=== PATIENT | female | born 1950 | race African-American/Black ===

== ENCOUNTER 2021-03-02 16:00 | Inpatient (IN) | payer OTHER, MEDICAID ==
[~2021-03-02] VITALS: Ht 153 cm; Wt 65.3 kg
[2021-03-02] MEDS ORDERED: POTASSIUM CHLORIDE INJ 40 MEQ in DEXT 5% WATER 250 ML IV ONE (21:00)
[2021-03-02] MEDS ORDERED: SODIUM CHLORIDE 0.9% 1,000 ML IV ONE (21:00)
[2021-03-02] MEDS ORDERED: KCL 20MEQ/100ML PREMIX 100 ML IV SCH (22:00)
[2021-03-03] MEDS ORDERED: ACETAMINOPHEN 325MG TABLET PO PRN (00:15)
[2021-03-03] MEDS: BLOOD SUGAR DIAGNOSTIC STRIP TEST SCH ×4 (00:15→18:00)
[2021-03-03] MEDS ORDERED: MIDODRINE HCL 5MG TABLET PO SCH (00:15)
[2021-03-03] MEDS ORDERED: POTASSIUM-SODIUM PHOSPHATE POWDER PACKET PO ONE (00:30)
[2021-03-03 01:43] LABS: EOSINOPHILS % 0.3 % (0.0-5.0); HEMATOCRIT. 32.8 % (36.0-48.0); HEMOGLOBIN. 10.8 g/dL (12.0-16.0); LYMPHOCYTES % 8.8 % (20.0-50.0); MEAN CORPUSCULAR HEMOGLOBIN 27.6 pg (28.0-32.0); MONOCYTES % 11.1 % (2.0-8.0); NEUTROPHILS % 78.8 % (40.0-76.0); PLATELET 205 x1000/uL (130-400)
[2021-03-03] MEDS ORDERED: KCL 20MEQ/100ML PREMIX 100 ML IV ONE (01:45)
[2021-03-03] MEDS ORDERED: POTASSIUM-SODIUM PHOSPHATE POWDER PACKET PO SCH (04:00)
[2021-03-03] MEDS: MIDODRINE HCL 5MG TABLET PO SCH ×3 (05:48→17:00)
[2021-03-03] MEDS: NOREPINEPHRINE 8 MG in DEXTROSE 5% WATER 250 ML IV PRN (06:08)
[2021-03-03] MEDS ORDERED: DEXT 5%/0.9% NACL 1,000 ML IV SCH (10:30)
[2021-03-03] MEDS ORDERED: CEFTRIAXONE 1 G PREMIX 50 ML IV SCH (16:00)
[2021-03-03 23:43] LABS: BASOPHILS % 0.9 % (0.0-2.0); EOSINOPHILS % 0.6 % (0.0-5.0); HEMATOCRIT. 32.1 % (36.0-48.0); HEMOGLOBIN. 10.5 g/dL (12.0-16.0); MEAN CORPUSCULAR HEMOGLOBIN 27.4 pg (28.0-32.0); MEAN CORPUSCULAR VOLUME 83.6 fL (81.0-99.0); NEUTROPHILS % 78.5 % (40.0-76.0); RED BLOOD CELL COUNT 3.84 mill/uL (4.2-5.4); RED CELL DISTRIBUTION WIDTH 17.9 % (11.6-14.6)
[2021-03-04] VITALS (26 sets, daily range): BP systolic 92–126; BP diastolic 48–67
[2021-03-04 00:05] LABS: PHOSPHORUS 3.6 mg/dL (2.5-4.9)
[2021-03-04 00:19] LABS: PLATELET 206 x1000/uL (130-400)
[2021-03-04] MEDS ORDERED: POTASSIUM CHLORIDE 20MEQ TABLET SR PO SCH (00:45)
[2021-03-04] MEDS ORDERED: POTASSIUM CHLORIDE INJ 60 MEQ in DEXT 5% WATER 500 ML IV SCH (01:00)
[2021-03-04 03:59] LABS: BASOPHILS % 1.5 % (0.0-2.0); EOSINOPHILS % 0.5 % (0.0-5.0); HEMATOCRIT. 31.8 % (36.0-48.0); HEMOGLOBIN. 10.4 g/dL (12.0-16.0); LYMPHOCYTES % 7.6 % (20.0-50.0); MEAN CORPUSCULAR HEMOGLOBIN 27.2 pg (28.0-32.0); MEAN CORPUSCULAR VOLUME 83.6 fL (81.0-99.0); MEAN PLATELET VOLUME 9.5 fl (7.4-10.4); MONOCYTES % 9.5 % (2.0-8.0); NEUTROPHILS % 80.9 % (40.0-76.0); PLATELET 227 x1000/uL (130-400); RED CELL DISTRIBUTION WIDTH 17.9 % (11.6-14.6)
[2021-03-04] MEDS: BLOOD SUGAR DIAGNOSTIC STRIP TEST SCH ×4 (06:00→18:00)
[2021-03-04] MEDS ORDERED: POTASSIUM CHLORIDE 20MEQ TABLET SR PO ONE (07:30)
[2021-03-04] MEDS: FOLIC ACID/VITAMIN B COMP W-C TABLET PO SCH (11:02)
[2021-03-04] MEDS: MIDODRINE HCL 5MG TABLET PO SCH ×3 (11:02→17:29)
[2021-03-04] MEDS: DEXT 5%/0.45% NACL KCL 30MEQ/L 1,000 ML IV SCH (11:03)
[2021-03-04] MEDS ORDERED: ALBUMIN HUMAN 12.5GM/50ML (25%) IV ONE (13:15)
[2021-03-04] MEDS ORDERED: CEFTRIAXONE 1,000 MG in DEXTROSE 5% WATER 50 ML IV SCH (14:00)
[2021-03-04] MEDS ORDERED: KCL 20MEQ/100ML PREMIX 100 ML IV NR (14:00)
[2021-03-04] MEDS: HEPARIN 5000 UNITS/ML VIAL SUBCUT SCH ×2 (15:06→20:22)
[2021-03-04] MEDS: NOREPINEPHRINE 8 MG in DEXTROSE 5% WATER 250 ML IV PRN (15:37)
[2021-03-04] MEDS ORDERED: IPRATROPIUM/ALBUTEROL 0.5-3(2.5)MG/3ML NEB HHN PRN (19:45)
[2021-03-04 20:19] LABS: HEPATITIS B SURFACE ANTIGEN NEGATIVE
[2021-03-04 20:25] LABS: VITAMIN B12 SERUM 1119 pg/mL (211-911)
[2021-03-04] MEDS ORDERED: POTASSIUM CHLORIDE 20MEQ TABLET SR PO NR (20:30)
[2021-03-04 20:59] LABS: FERRITIN 2646 ng/mL (10-291)
[2021-03-04] MEDS: METRONIDAZOLE 500MG TABLET PO SCH (22:37)
[2021-03-04] MEDS: CEFEPIME 1,000 MG in DEXTROSE 5% WATER 50 ML IV SCH (22:37)
[2021-03-05] VITALS (91 sets, daily range): BP systolic 69–133; BP diastolic 40–88
[2021-03-05] MEDS: BLOOD SUGAR DIAGNOSTIC STRIP TEST SCH ×3 (00:29→17:47)
[2021-03-05] MEDS: NOREPINEPHRINE 8 MG in DEXTROSE 5% WATER 250 ML IV PRN (04:16)
[2021-03-05] MEDS: DEXT 5%/0.45% NACL KCL 30MEQ/L 1,000 ML IV SCH (05:16)
[2021-03-05] MEDS: METRONIDAZOLE 500MG TABLET PO SCH ×3 (05:16→21:15)
[2021-03-05 06:14] LABS: INR 1.3; PROTHROMBIN TIME 13.4 sec (9.6-11.0)
[2021-03-05 08:40] LABS: BG BASE EXCESS -3.8 mmol/L (-2.0-2.0); BG CARBOXYHEMOGLOBIN 0.3 % (0.5-1.5); BG DEOXYHEMOGLOBIN 3.2 % (0.0-5.0); BG FRACTION INSPIRED OXYGEN 21; BG HCO3 ACT 19.9 mmol/L (22.0-26.0); BG METHEMOGLOBIN 0.6 % (0.0-1.5); BG OXYGEN SATURATION 96.8 % (92.0-98.5); BG OXYHEMOGLOBIN 95.9 % (94.0-97.0); BG PCO2 31.4 mmHg (35.0-45.0); BG PO2 95.4 mmHg (75.0-100.0); BG SAMPLE SITE LEFT BRACHIAL; BG VENT MODE ROOM AIR
[2021-03-05] MEDS: HEPARIN 5000 UNITS/ML VIAL SUBCUT SCH ×2 (09:11→21:16)
[2021-03-05] MEDS: MIDODRINE HCL 5MG TABLET PO SCH ×3 (09:11→17:47)
[2021-03-05] MEDS: CEFEPIME 1,000 MG in DEXTROSE 5% WATER 50 ML IV SCH ×2 (09:11→21:15)
[2021-03-05] MEDS: FOLIC ACID/VITAMIN B COMP W-C TABLET PO SCH (09:11)
[2021-03-05 09:39] LABS: BASOPHILS % 1.5 % (0.0-2.0); EOSINOPHILS % 1.4 % (0.0-5.0); HEMATOCRIT. 31.2 % (36.0-48.0); HEMOGLOBIN. 9.9 g/dL (12.0-16.0); MEAN CORPUSCULAR HEMOGLOBIN 27.5 pg (28.0-32.0); MEAN CORPUSCULAR VOLUME 86.1 fL (81.0-99.0); MEAN PLATELET VOLUME 9.6 fl (7.4-10.4); NEUTROPHILS % 72.1 % (40.0-76.0); RED BLOOD CELL COUNT 3.62 mill/uL (4.2-5.4); RED CELL DISTRIBUTION WIDTH 18.5 % (11.6-14.6)
[2021-03-05 09:41] LABS: PLATELET 199 x1000/uL (130-400)
[2021-03-06] VITALS (56 sets, daily range): BP systolic 89–122; BP diastolic 42–64
[2021-03-06] MEDS: BLOOD SUGAR DIAGNOSTIC STRIP TEST SCH ×4 (00:25→18:38)
[2021-03-06] MEDS: DEXT 5%/0.45% NACL KCL 30MEQ/L 1,000 ML IV SCH (00:51)
[2021-03-06] MEDS: METRONIDAZOLE 500MG TABLET PO SCH ×3 (06:28→23:54)
[2021-03-06 06:35] LABS: PHOSPHORUS 2.7 mg/dL (2.5-4.9)
[2021-03-06] MEDS: FOLIC ACID/VITAMIN B COMP W-C TABLET PO SCH (09:42)
[2021-03-06] MEDS: HEPARIN 5000 UNITS/ML VIAL SUBCUT SCH ×2 (09:42→21:00)
[2021-03-06] MEDS: MIDODRINE HCL 5MG TABLET PO SCH ×3 (09:43→17:01)
[2021-03-06] MEDS: CEFEPIME 1,000 MG in DEXTROSE 5% WATER 50 ML IV SCH (09:46)
[2021-03-06 09:54] LABS: BASOPHILS % 1.3 % (0.0-2.0); HEMATOCRIT. 31.9 % (36.0-48.0); LYMPHOCYTES % 14.1 % (20.0-50.0); MEAN PLATELET VOLUME 9.8 fl (7.4-10.4); MONOCYTES % 11.9 % (2.0-8.0); NEUTROPHILS % 71.7 % (40.0-76.0); PLATELET 174 x1000/uL (130-400); RED BLOOD CELL COUNT 3.59 mill/uL (4.2-5.4); RED CELL DISTRIBUTION WIDTH 19.5 % (11.6-14.6)
[2021-03-06] MEDS: DEXTROSE 50% WATER 50ML SYRINGE IV PRN (18:30)
[2021-03-06] MEDS: VANCOMYCIN HCL 1000 MG/20 ML ORAL PO SCH ×2 (19:08→23:54)
[2021-03-07] VITALS: BP 101/48
[2021-03-07] MEDS: BLOOD SUGAR DIAGNOSTIC STRIP TEST SCH ×4 (00:06→18:13)
[2021-03-07] MEDS: CEFEPIME 1,000 MG in DEXTROSE 5% WATER 50 ML IV SCH ×3 (00:28→21:52)
[2021-03-07 04:00] VITALS: BP 98/52
[2021-03-07] MEDS: VANCOMYCIN HCL 1000 MG/20 ML ORAL PO SCH ×3 (06:20→23:53)
[2021-03-07] MEDS: METRONIDAZOLE 500MG TABLET PO SCH ×3 (06:20→21:52)
[2021-03-07 07:04] LABS: BASOPHILS % 2.5 % (0.0-2.0); EOSINOPHILS % 0.9 % (0.0-5.0); HEMATOCRIT. 32.1 % (36.0-48.0); HEMOGLOBIN. 10.7 g/dL (12.0-16.0); LYMPHOCYTES % 17.8 % (20.0-50.0); MEAN CORPUSCULAR HEMOGLOBIN 27.9 pg (28.0-32.0); MEAN CORPUSCULAR VOLUME 83.9 fL (81.0-99.0); MEAN PLATELET VOLUME 10.1 fl (7.4-10.4); NEUTROPHILS % 68.8 % (40.0-76.0); PLATELET 187 x1000/uL (130-400); RED BLOOD CELL COUNT 3.83 mill/uL (4.2-5.4); RED CELL DISTRIBUTION WIDTH 18.6 % (11.6-14.6)
[2021-03-07 08:00] VITALS: BP 101/55
[2021-03-07] MEDS ORDERED: POTASSIUM CHLORIDE 20MEQ/PACKET PO SCH (08:00)
[2021-03-07] MEDS ORDERED: POTASSIUM CHLORIDE INJ 40 MEQ in DEXT 5% WATER 250 ML IV SCH (09:00)
[2021-03-07] MEDS: MIDODRINE HCL 5MG TABLET PO SCH ×3 (09:10→18:13)
[2021-03-07] MEDS: FOLIC ACID/VITAMIN B COMP W-C TABLET PO SCH (09:10)
[2021-03-07] MEDS: HEPARIN 5000 UNITS/ML VIAL SUBCUT SCH (09:11)
[2021-03-07 12:00] VITALS: BP 98/58
[2021-03-07 16:00] VITALS: BP 107/56
[2021-03-07 20:00] VITALS: BP 111/55
[2021-03-08] VITALS: BP_SYST 109; BP_SYST 111; BP_DIAS 52
[2021-03-08] MEDS: BLOOD SUGAR DIAGNOSTIC STRIP TEST SCH ×4 (00:36→18:04)
[2021-03-08 04:00] VITALS: BP_SYST 111; BP_SYST 92; BP_DIAS 52; BP_DIAS 62
[2021-03-08] MEDS: METRONIDAZOLE 500MG TABLET PO SCH ×3 (06:00→22:11)
[2021-03-08] MEDS: VANCOMYCIN HCL 1000 MG/20 ML ORAL PO SCH ×3 (06:11→18:04)
[2021-03-08 08:00] VITALS: BP 97/57
[2021-03-08] MEDS: FOLIC ACID/VITAMIN B COMP W-C TABLET PO SCH (08:56)
[2021-03-08] MEDS: MIDODRINE HCL 5MG TABLET PO SCH ×3 (08:56→17:00)
[2021-03-08] MEDS: CEFEPIME 1,000 MG in DEXTROSE 5% WATER 50 ML IV SCH ×2 (08:57→22:11)
[2021-03-08 12:00] VITALS: BP 103/40
[2021-03-08 13:35] LABS: HEMATOCRIT. 35.7 % (36.0-48.0); HEMOGLOBIN. 11.1 g/dL (12.0-16.0); MEAN CORPUSCULAR HEMOGLOBIN 27.4 pg (28.0-32.0); MEAN CORPUSCULAR VOLUME 87.8 fL (81.0-99.0); MEAN PLATELET VOLUME 9.3 fl (7.4-10.4); PLATELET 142 x1000/uL (130-400); RED BLOOD CELL COUNT 4.07 mill/uL (4.2-5.4); RED CELL DISTRIBUTION WIDTH 19.5 % (11.6-14.6)
[2021-03-08 14:05] LABS: BASOPHILS % 1.1 % (0.0-2.0); EOSINOPHILS % 0.5 % (0.0-5.0); LYMPHOCYTES % 14.1 % (20.0-50.0); MONOCYTES % 10.8 % (2.0-8.0); NEUTROPHILS % 73.5 % (40.0-76.0)
[2021-03-08 16:00] VITALS: BP 96/45
[2021-03-08 20:00] VITALS: BP 111/72
[2021-03-09] VITALS: BP 113/48
[2021-03-09] MEDS: VANCOMYCIN HCL 1000 MG/20 ML ORAL PO SCH ×4 (02:23→17:53)
[2021-03-09 04:00] VITALS: BP 109/74
[2021-03-09] MEDS: METRONIDAZOLE 500MG TABLET PO SCH ×3 (06:09→21:43)
[2021-03-09] MEDS: BLOOD SUGAR DIAGNOSTIC STRIP TEST SCH ×4 (06:09→17:52)
[2021-03-09 08:00] VITALS: BP 106/40
[2021-03-09 08:16] LABS: BASOPHILS % 1.4 % (0.0-2.0); EOSINOPHILS % 0.9 % (0.0-5.0); HEMATOCRIT. 30.6 % (36.0-48.0); HEMOGLOBIN. 10.2 g/dL (12.0-16.0); LYMPHOCYTES % 15.5 % (20.0-50.0); NEUTROPHILS % 71.2 % (40.0-76.0); RED BLOOD CELL COUNT 3.64 mill/uL (4.2-5.4); RED CELL DISTRIBUTION WIDTH 18.7 % (11.6-14.6)
[2021-03-09] MEDS: FOLIC ACID/VITAMIN B COMP W-C TABLET PO SCH (08:36)
[2021-03-09] MEDS: MIDODRINE HCL 5MG TABLET PO SCH ×3 (08:36→17:53)
[2021-03-09] MEDS: CEFEPIME 1,000 MG in DEXTROSE 5% WATER 50 ML IV SCH ×2 (08:44→21:43)
[2021-03-09 09:51] LABS: PLATELET 131 x1000/uL (130-400)
[2021-03-09 12:00] VITALS: BP 113/52
[2021-03-09] MEDS: POTASSIUM CHLORIDE 20MEQ/PACKET PO SCH ×2 (13:58→17:53)
[2021-03-09 16:00] VITALS: BP 100/48
[2021-03-09 20:00] VITALS: BP 105/55
[2021-03-10] VITALS: BP 106/52
[2021-03-10] MEDS: BLOOD SUGAR DIAGNOSTIC STRIP TEST SCH ×4 (00:25→18:00)
[2021-03-10] MEDS: VANCOMYCIN HCL 1000 MG/20 ML ORAL PO SCH ×4 (00:25→18:00)
[2021-03-10] MEDS: POTASSIUM CHLORIDE 20MEQ/PACKET PO SCH ×2 (00:25→05:21)
[2021-03-10 04:00] VITALS: BP 109/57
[2021-03-10 05:11] LABS: OVA & PARASITE EXAM Final report (.)
[2021-03-10] MEDS: DEXTROSE 50% WATER 50ML SYRINGE IV PRN (05:25)
[2021-03-10 07:59] LABS: BASOPHILS % 0.5 % (0.0-2.0); HEMATOCRIT. 29.4 % (36.0-48.0); HEMOGLOBIN. 9.5 g/dL (12.0-16.0); INR 1.8; LYMPHOCYTES % 18.6 % (20.0-50.0); MEAN CORPUSCULAR HEMOGLOBIN 27.5 pg (28.0-32.0); MEAN CORPUSCULAR VOLUME 85.5 fL (81.0-99.0); MEAN PLATELET VOLUME 9.9 fl (7.4-10.4); NEUTROPHILS % 70.9 % (40.0-76.0); PLATELET 128 x1000/uL (130-400); PROTHROMBIN TIME 18.2 sec (9.6-11.0); RED BLOOD CELL COUNT 3.44 mill/uL (4.2-5.4); RED CELL DISTRIBUTION WIDTH 19.7 % (11.6-14.6)
[2021-03-10 08:00] VITALS: BP 121/50
[2021-03-10] MEDS: MIDODRINE HCL 5MG TABLET PO SCH ×3 (09:00→17:00)
[2021-03-10] MEDS: FOLIC ACID/VITAMIN B COMP W-C TABLET PO SCH (09:00)
[2021-03-10] MEDS ORDERED: POTASSIUM CHLORIDE 20MEQ TABLET SR PO NR (09:15)
[2021-03-10] MEDS: DEXT 5%/0.45% NACL 1000ML 1,000 ML IV SCH (09:29)
[2021-03-10] MEDS ORDERED: KCL 20MEQ/100ML PREMIX 100 ML IV NR (10:30)
[2021-03-10 12:00] VITALS: BP 109/52
[2021-03-10 16:00] VITALS: BP 111/51
[2021-03-10 20:00] VITALS: BP 95/55
[2021-03-11] VITALS: BP 116/65
[2021-03-11] MEDS: BLOOD SUGAR DIAGNOSTIC STRIP TEST SCH ×4 (00:48→18:16)
[2021-03-11] MEDS: VANCOMYCIN HCL 1000 MG/20 ML ORAL PO SCH ×4 (01:00→17:32)
[2021-03-11 04:00] VITALS: BP 125/80
[2021-03-11] MEDS: DEXT 5%/0.45% NACL 1000ML 1,000 ML IV SCH (07:03)
[2021-03-11 07:04] LABS: BASOPHILS % 0.7 % (0.0-2.0); EOSINOPHILS % 1.4 % (0.0-5.0); HEMATOCRIT. 28.4 % (36.0-48.0); HEMOGLOBIN. 9.5 g/dL (12.0-16.0); LYMPHOCYTES % 17.5 % (20.0-50.0); MEAN CORPUSCULAR HEMOGLOBIN 27.7 pg (28.0-32.0); MONOCYTES % 9.5 % (2.0-8.0); NEUTROPHILS % 70.9 % (40.0-76.0); RED BLOOD CELL COUNT 3.42 mill/uL (4.2-5.4); RED CELL DISTRIBUTION WIDTH 18.7 % (11.6-14.6)
[2021-03-11 07:19] LABS: INR 1.7; PROTHROMBIN TIME 17.7 sec (9.6-11.0)
[2021-03-11 07:21] LABS: CHLORIDE 115 mEq/L (98-107)
[2021-03-11 08:00] VITALS: BP_SYST 122; BP_SYST 129; BP_DIAS 54; BP_DIAS 60
[2021-03-11] MEDS: FOLIC ACID/VITAMIN B COMP W-C TABLET PO SCH (09:00)
[2021-03-11] MEDS: MIDODRINE HCL 5MG TABLET PO SCH ×3 (09:00→17:32)
[2021-03-11] MEDS ORDERED: POTASSIUM CHLORIDE 20MEQ/PACKET PO NR (10:45)
[2021-03-11 12:00] VITALS: BP 129/60
[2021-03-11 12:23] LABS: PLATELET 108 x1000/uL (130-400)
[2021-03-11] MEDS ORDERED: PROPOFOL 200MG/20ML VIAL IV ONE (13:33)
[2021-03-11] MEDS ORDERED: SIMETHICONE 40 MG/0.6 ML 30ML ONE (13:36)
[2021-03-11] MEDS ORDERED: PHENYLEPHRINE HCL 10 MG/ML 1ML (IV VIAL) IV ONE (14:09)
[2021-03-11 16:00] VITALS: BP 103/43
[2021-03-11 20:00] VITALS: BP_SYST 105; BP_SYST 117; BP_DIAS 49; BP_DIAS 69
[2021-03-12] VITALS: BP 97/73
[2021-03-12] MEDS: BLOOD SUGAR DIAGNOSTIC STRIP TEST SCH ×4 (00:32→17:14)
[2021-03-12] MEDS: VANCOMYCIN HCL 1000 MG/20 ML ORAL PO SCH ×4 (00:32→17:14)
[2021-03-12 04:00] VITALS: BP 122/53
[2021-03-12] MEDS: DEXT 5%/0.45% NACL 1000ML 1,000 ML IV SCH (06:01)
[2021-03-12 08:28] VITALS: BP 118/40
[2021-03-12] MEDS: FOLIC ACID/VITAMIN B COMP W-C TABLET PO SCH (08:54)
[2021-03-12] MEDS: MIDODRINE HCL 5MG TABLET PO SCH ×3 (08:54→17:11)
[2021-03-12] MEDS ORDERED: POTASSIUM CHLORIDE 20MEQ/PACKET PO NR (10:00)
[2021-03-12] MEDS ORDERED: POTASSIUM CHLORIDE 20MEQ/PACKET PO PRN (10:15)
[2021-03-12 10:54] LABS: BASOPHILS % 1.3 % (0.0-2.0); EOSINOPHILS % 2.2 % (0.0-5.0); HEMATOCRIT. 24.6 % (36.0-48.0); HEMOGLOBIN. 8.1 g/dL (12.0-16.0); LYMPHOCYTES % 18.9 % (20.0-50.0); MEAN CORPUSCULAR HEMOGLOBIN 27.6 pg (28.0-32.0); MEAN CORPUSCULAR VOLUME 84.3 fL (81.0-99.0); MEAN PLATELET VOLUME 10.1 fl (7.4-10.4); MONOCYTES % 8.2 % (2.0-8.0); NEUTROPHILS % 69.4 % (40.0-76.0); PLATELET 83 x1000/uL (130-400); RED BLOOD CELL COUNT 2.92 mill/uL (4.2-5.4); RED CELL DISTRIBUTION WIDTH 19.3 % (11.6-14.6)
[2021-03-12 10:59] LABS: PHOSPHORUS 1.9 mg/dL (2.5-4.9)
[2021-03-12 12:00] VITALS: BP 114/53
[2021-03-12] MEDS ORDERED: PANTOPRAZOLE SODIUM 40 MG/VIAL IV NR (14:30)
[2021-03-12 16:00] VITALS: BP 91/41
[2021-03-12] MEDS: SUCRALFATE 1 G/10 ML UDC PO SCH ×2 (17:11→21:41)
[2021-03-12] MEDS: METOCLOPRAMIDE HCL 10MG/2ML VIAL IV SCH (17:11)
[2021-03-12 20:00] VITALS: BP 90/42
[2021-03-12] MEDS: DEXTROSE 50% WATER 50ML SYRINGE IV PRN (21:43)
[2021-03-13] VITALS: BP 94/30
[2021-03-13] MEDS: BLOOD SUGAR DIAGNOSTIC STRIP TEST SCH ×4 (00:30→17:23)
[2021-03-13] MEDS: VANCOMYCIN HCL 1000 MG/20 ML ORAL PO SCH ×4 (00:31→17:23)
[2021-03-13 04:00] VITALS: BP 133/79
[2021-03-13] MEDS: METOCLOPRAMIDE HCL 10MG/2ML VIAL IV SCH ×3 (06:11→17:22)
[2021-03-13] MEDS: SUCRALFATE 1 G/10 ML UDC PO SCH ×4 (06:23→22:06)
[2021-03-13 08:00] VITALS: BP 105/53
[2021-03-13] MEDS: FOLIC ACID/VITAMIN B COMP W-C TABLET PO SCH (09:05)
[2021-03-13] MEDS: MIDODRINE HCL 5MG TABLET PO SCH ×3 (09:06→17:22)
[2021-03-13 12:00] VITALS: BP 121/50
[2021-03-13 16:00] VITALS: BP 107/48
[2021-03-13 16:36] LABS: BASOPHILS % 0.9 % (0.0-2.0); EOSINOPHILS % 1.3 % (0.0-5.0); HEMATOCRIT. 27.4 % (36.0-48.0); HEMOGLOBIN. 8.8 g/dL (12.0-16.0); LYMPHOCYTES % 19.1 % (20.0-50.0); MEAN CORPUSCULAR HEMOGLOBIN 27.6 pg (28.0-32.0); MEAN CORPUSCULAR VOLUME 85.8 fL (81.0-99.0); MEAN PLATELET VOLUME 10.8 fl (7.4-10.4); MONOCYTES % 8.5 % (2.0-8.0); NEUTROPHILS % 70.2 % (40.0-76.0); PLATELET 87 x1000/uL (130-400); RED BLOOD CELL COUNT 3.19 mill/uL (4.2-5.4); RED CELL DISTRIBUTION WIDTH 19.7 % (11.6-14.6)
[2021-03-13 20:00] VITALS: BP 111/44
[2021-03-13] MEDS: DEXTROSE 50% WATER 50ML SYRINGE IV PRN (22:06)
[2021-03-14] VITALS: BP 122/62
[2021-03-14] MEDS: VANCOMYCIN HCL 1000 MG/20 ML ORAL PO SCH ×4 (00:48→18:00)
[2021-03-14] MEDS: BLOOD SUGAR DIAGNOSTIC STRIP TEST SCH ×4 (00:48→18:42)
[2021-03-14 04:00] VITALS: BP 118/69
[2021-03-14] MEDS: METOCLOPRAMIDE HCL 10MG/2ML VIAL IV SCH ×3 (06:36→18:33)
[2021-03-14] MEDS: SUCRALFATE 1 G/10 ML UDC PO SCH ×4 (06:46→20:13)
[2021-03-14 07:43] LABS: BASOPHILS % 0.6 % (0.0-2.0); EOSINOPHILS % 1.3 % (0.0-5.0); HEMATOCRIT. 28.3 % (36.0-48.0); HEMOGLOBIN. 9.1 g/dL (12.0-16.0); MEAN CORPUSCULAR HEMOGLOBIN 27.8 pg (28.0-32.0); MEAN CORPUSCULAR VOLUME 86.5 fL (81.0-99.0); MONOCYTES % 8.3 % (2.0-8.0); NEUTROPHILS % 74.8 % (40.0-76.0); RED BLOOD CELL COUNT 3.27 mill/uL (4.2-5.4)
[2021-03-14 08:00] VITALS: BP 127/49
[2021-03-14 08:51] LABS: PLATELET 84 x1000/uL (130-400)
[2021-03-14] MEDS: FOLIC ACID/VITAMIN B COMP W-C TABLET PO SCH (09:42)
[2021-03-14] MEDS: MIDODRINE HCL 5MG TABLET PO SCH ×3 (09:43→17:00)
[2021-03-14 12:00] VITALS: BP 128/80
[2021-03-14 16:00] VITALS: BP 106/49
[2021-03-14] MEDS: LACTOBACILLUS GG CAPSULE PO SCH (18:00)
[2021-03-14] MEDS: MEGESTROL ACETATE 400 MG/10 ML UDC PO SCH (18:00)
[2021-03-14] MEDS: DEXTROSE 50% WATER 50ML SYRINGE IV PRN (18:33)
[2021-03-14] MEDS: DEXTROSE 5% WATER 1,000 ML IV SCH (18:35)
[2021-03-14 20:00] VITALS: BP 144/57
[2021-03-15] VITALS: BP 101/41
[2021-03-15] MEDS: VANCOMYCIN HCL 1000 MG/20 ML ORAL PO SCH ×5 (00:23→23:13)
[2021-03-15] MEDS: BLOOD SUGAR DIAGNOSTIC STRIP TEST SCH ×5 (00:26→23:13)
[2021-03-15 04:00] VITALS: BP 129/42
[2021-03-15 06:00] LABS: HEMATOCRIT. 31.1 % (36.0-48.0); HEMOGLOBIN. 9.6 g/dL (12.0-16.0); MEAN CORPUSCULAR HEMOGLOBIN 27.7 pg (28.0-32.0); MEAN CORPUSCULAR VOLUME 90.4 fL (81.0-99.0); MEAN PLATELET VOLUME 10.5 fl (7.4-10.4); PLATELET 86 x1000/uL (130-400); RED BLOOD CELL COUNT 3.44 mill/uL (4.2-5.4); RED CELL DISTRIBUTION WIDTH 20.3 % (11.6-14.6)
[2021-03-15 06:15] LABS: INR 1.4; PROTHROMBIN TIME 15.1 sec (9.6-11.0)
[2021-03-15] MEDS: DEXTROSE 50% WATER 50ML SYRINGE IV PRN ×3 (06:15→18:09)
[2021-03-15] MEDS: METOCLOPRAMIDE HCL 10MG/2ML VIAL IV SCH ×3 (06:21→18:09)
[2021-03-15] MEDS: SUCRALFATE 1 G/10 ML UDC PO SCH ×4 (06:21→20:23)
[2021-03-15 08:00] VITALS: BP 95/44
[2021-03-15] MEDS: FOLIC ACID/VITAMIN B COMP W-C TABLET PO SCH (08:29)
[2021-03-15] MEDS: MEGESTROL ACETATE 400 MG/10 ML UDC PO SCH (08:30)
[2021-03-15] MEDS: LACTOBACILLUS GG CAPSULE PO SCH (08:30)
[2021-03-15] MEDS: MIDODRINE HCL 5MG TABLET PO SCH ×3 (08:30→18:09)
[2021-03-15 10:49] LABS: NUCLEATED RED BLOOD CELLS 1 /100 WBC; PLATELET ESTIMATE DECREASED
[2021-03-15 12:00] VITALS: BP 100/44
[2021-03-15 16:00] VITALS: BP 119/69
[2021-03-15] MEDS: DEXTROSE 5% WATER 1,000 ML IV SCH (17:45)
[2021-03-15 20:00] VITALS: BP 123/68
[2021-03-16] VITALS: BP 130/49
[2021-03-16 04:00] VITALS: BP 109/48
[2021-03-16] MEDS: SUCRALFATE 1 G/10 ML UDC PO SCH ×4 (06:40→21:00)
[2021-03-16] MEDS: VANCOMYCIN HCL 1000 MG/20 ML ORAL PO SCH ×4 (06:40→23:17)
[2021-03-16] MEDS: BLOOD SUGAR DIAGNOSTIC STRIP TEST SCH ×4 (06:40→23:17)
[2021-03-16] MEDS: METOCLOPRAMIDE HCL 10MG/2ML VIAL IV SCH ×3 (06:40→17:51)
[2021-03-16 08:00] VITALS: BP 119/58
[2021-03-16] MEDS: FOLIC ACID/VITAMIN B COMP W-C TABLET PO SCH (09:00)
[2021-03-16] MEDS: MIDODRINE HCL 5MG TABLET PO SCH ×3 (09:00→17:00)
[2021-03-16] MEDS: MEGESTROL ACETATE 400 MG/10 ML UDC PO SCH (09:00)
[2021-03-16] MEDS: LACTOBACILLUS GG CAPSULE PO SCH (09:00)
[2021-03-16 14:15] VITALS: BP 146/42
[2021-03-16 16:00] VITALS: BP 125/53
[2021-03-16] MEDS: DEXTROSE 5% WATER 1,000 ML IV SCH (17:45)
[2021-03-16 20:00] VITALS: BP 119/68
[2021-03-17] VITALS: BP 121/50
[2021-03-17 01:43] LABS: CLARITY URINE CLOUDY (CLEAR); COLOR URINE DARK YELLOW (YELLOW); KETONES URINE NEGATIVE (NEGATIVE); LEUKOCYTE ESTERASE URINE 2+ (NEGATIVE); NITRITE URINE NEGATIVE (NEGATIVE); OCCULT BLOOD URINE TRACE (NEGATIVE); PH URINE 5.5 (4.5-8.0); PROTEIN URINE 2+ (NEGATIVE); SPECIFIC GRAVITY URINE 1.016 (1.005-1.030); UROBILINOGEN URINE 0.2 E.U./dL (0.2-1.0)
[2021-03-17 04:00] VITALS: BP 108/46
[2021-03-17] MEDS: VANCOMYCIN HCL 1000 MG/20 ML ORAL PO SCH ×3 (06:00→17:23)
[2021-03-17] MEDS: METOCLOPRAMIDE HCL 10MG/2ML VIAL IV SCH ×3 (06:17→17:00)
[2021-03-17] MEDS: SUCRALFATE 1 G/10 ML UDC PO SCH ×4 (06:17→21:00)
[2021-03-17] MEDS: BLOOD SUGAR DIAGNOSTIC STRIP TEST SCH ×3 (06:17→18:00)
[2021-03-17 08:00] VITALS: BP 108/45
[2021-03-17 08:50] LABS: CHLORIDE 111 mEq/L (98-107)
[2021-03-17] MEDS ORDERED: POTASSIUM CHLORIDE INJ 30 MEQ in DEXT 5% WATER 250 ML IV ONE (10:30)
[2021-03-17] MEDS: FOLIC ACID/VITAMIN B COMP W-C TABLET PO SCH (10:45)
[2021-03-17] MEDS: DEXTROSE 5% WATER 1,000 ML IV SCH ×2 (10:45→17:45)
[2021-03-17] MEDS: MIDODRINE HCL 5MG TABLET PO SCH ×3 (10:45→17:33)
[2021-03-17] MEDS: LACTOBACILLUS GG CAPSULE PO SCH (10:45)
[2021-03-17] MEDS: MEGESTROL ACETATE 400 MG/10 ML UDC PO SCH (10:45)
[2021-03-17] MEDS ORDERED: KCL 20MEQ/100ML PREMIX 100 ML IV ONE (11:30)
[2021-03-17 12:00] VITALS: BP 121/59
[2021-03-17] MEDS ORDERED: KCL 10MEQ/50ML PREMIX 50 ML IV ONE (14:00)
[2021-03-17] MEDS ORDERED: POTASSIUM CHLORIDE 10MEQ TABLET SR PO SCH (15:45)
[2021-03-17] MEDS ORDERED: POTASSIUM CHLORIDE 10MEQ TABLET SR PO NR (15:45)
[2021-03-17 16:00] VITALS: BP 120/55
[2021-03-17] MEDS ORDERED: KCL 10MEQ/50ML PREMIX 50 ML IV NR (17:00)
[2021-03-17 20:00] VITALS: BP 133/39
[2021-03-17 23:01] LABS: HEMATOCRIT. 25.2 % (36.0-48.0); HEMOGLOBIN. 8.3 g/dL (12.0-16.0); MEAN CORPUSCULAR HEMOGLOBIN 27.7 pg (28.0-32.0); MEAN CORPUSCULAR VOLUME 84.2 fL (81.0-99.0); RED CELL DISTRIBUTION WIDTH 19.5 % (11.6-14.6)
[2021-03-17 23:44] LABS: PLATELET ESTIMATE DECREAS
[2021-03-17 23:46] LABS: MEAN PLATELET VOLUME 10.7 fl (7.4-10.4); PLATELET 54 x1000/uL (130-400)
[2021-03-18] VITALS: BP 122/46
[2021-03-18] MEDS: BLOOD SUGAR DIAGNOSTIC STRIP TEST SCH ×4 (00:53→17:03)
[2021-03-18] MEDS: DEXTROSE 50% WATER 50ML SYRINGE IV PRN ×2 (00:54→13:09)
[2021-03-18] MEDS ORDERED: KCL 20MEQ/100ML PREMIX 100 ML IV NR (01:00)
[2021-03-18 04:00] VITALS: BP 111/69
[2021-03-18] MEDS: VANCOMYCIN HCL 1000 MG/20 ML ORAL PO SCH ×4 (06:00→18:26)
[2021-03-18 06:28] LABS: BASOPHILS % 0.3 % (0.0-2.0); EOSINOPHILS % 0.6 % (0.0-5.0); HEMATOCRIT. 24.6 % (36.0-48.0); HEMOGLOBIN. 8.2 g/dL (12.0-16.0); LYMPHOCYTES % 7.2 % (20.0-50.0); MEAN CORPUSCULAR HEMOGLOBIN 27.7 pg (28.0-32.0); MEAN CORPUSCULAR VOLUME 83.4 fL (81.0-99.0); MONOCYTES % 3.8 % (2.0-8.0); NEUTROPHILS % 88.1 % (40.0-76.0); RED BLOOD CELL COUNT 2.96 mill/uL (4.2-5.4)
[2021-03-18 08:00] VITALS: BP 101/45
[2021-03-18] MEDS: MEGESTROL ACETATE 400 MG/10 ML UDC PO SCH (09:24)
[2021-03-18] MEDS: SUCRALFATE 1 G/10 ML UDC PO SCH ×4 (09:24→22:32)
[2021-03-18] MEDS: MIDODRINE HCL 5MG TABLET PO SCH ×3 (09:24→18:27)
[2021-03-18] MEDS: FOLIC ACID/VITAMIN B COMP W-C TABLET PO SCH (09:25)
[2021-03-18] MEDS: LACTOBACILLUS GG CAPSULE PO SCH (09:25)
[2021-03-18] MEDS: METOCLOPRAMIDE HCL 10MG/2ML VIAL IV SCH ×3 (09:25→18:26)
[2021-03-18] MEDS: POTASSIUM CHLORIDE 20MEQ TABLET SR PO SCH ×2 (09:28→18:27)
[2021-03-18] MEDS ORDERED: POTASSIUM PHOS,M-BASIC-D-BASIC 10 MMOL in DEXT 5% WATER 246.6667 ML IV NR (11:00)
[2021-03-18 12:00] VITALS: BP 129/46
[2021-03-18 16:00] VITALS: BP 131/77
[2021-03-18] MEDS: DEXTROSE 5% WATER 1,000 ML IV SCH (18:27)
[2021-03-18 20:00] VITALS: BP 111/62
[2021-03-18 21:07] LABS: MEAN PLATELET VOLUME 11.3 fl (7.4-10.4); PLATELET 54 x1000/uL (130-400); PLATELET ESTIMATE DECREASED
[2021-03-19] VITALS: BP 129/84
[2021-03-19] MEDS: VANCOMYCIN HCL 1000 MG/20 ML ORAL PO SCH ×4 (02:43→18:31)
[2021-03-19 04:00] VITALS: BP 110/51
[2021-03-19] MEDS: METOCLOPRAMIDE HCL 10MG/2ML VIAL IV SCH ×3 (06:06→18:30)
[2021-03-19] MEDS: SUCRALFATE 1 G/10 ML UDC PO SCH ×5 (06:06→21:00)
[2021-03-19] MEDS: BLOOD SUGAR DIAGNOSTIC STRIP TEST SCH ×4 (06:07→18:31)
[2021-03-19 08:00] VITALS: BP 105/58
[2021-03-19] MEDS: LACTOBACILLUS GG CAPSULE PO SCH ×2 (09:00→09:40)
[2021-03-19] MEDS: POTASSIUM CHLORIDE 20MEQ TABLET SR PO SCH ×4 (09:00→18:30)
[2021-03-19] MEDS: MEGESTROL ACETATE 400 MG/10 ML UDC PO SCH ×2 (09:00→09:40)
[2021-03-19] MEDS: FOLIC ACID/VITAMIN B COMP W-C TABLET PO SCH ×2 (09:00→09:40)
[2021-03-19] MEDS: MIDODRINE HCL 5MG TABLET PO SCH ×5 (09:00→18:34)
[2021-03-19 10:20] LABS: BASOPHILS % 0.6 % (0.0-2.0); EOSINOPHILS % 0.8 % (0.0-5.0); HEMATOCRIT. 23.9 % (36.0-48.0); HEMOGLOBIN. 7.9 g/dL (12.0-16.0); LYMPHOCYTES % 10.8 % (20.0-50.0); MEAN CORPUSCULAR HEMOGLOBIN 27.6 pg (28.0-32.0); MEAN CORPUSCULAR VOLUME 84.1 fL (81.0-99.0); MONOCYTES % 4.7 % (2.0-8.0); NEUTROPHILS % 83.1 % (40.0-76.0); RED BLOOD CELL COUNT 2.85 mill/uL (4.2-5.4); RED CELL DISTRIBUTION WIDTH 19.3 % (11.6-14.6)
[2021-03-19 12:00] VITALS: BP 110/40
[2021-03-19] MEDS ORDERED: KCL 20MEQ/100ML PREMIX 100 ML IV NR (13:00)
[2021-03-19 15:42] LABS: MEAN PLATELET VOLUME 11.5 fl (7.4-10.4); PLATELET 53 x1000/uL (130-400)
[2021-03-19 16:00] VITALS: BP 120/60
[2021-03-19] MEDS: DEXTROSE 5% WATER 1,000 ML IV SCH (18:34)
[2021-03-19 20:00] VITALS: BP 102/41
[2021-03-20] VITALS (14 sets, daily range): BP systolic 93–123; BP diastolic 36–85
[2021-03-20] MEDS: VANCOMYCIN HCL 1000 MG/20 ML ORAL PO SCH ×4 (06:00→17:50)
[2021-03-20] MEDS: BLOOD SUGAR DIAGNOSTIC STRIP TEST SCH ×4 (06:36→17:51)
[2021-03-20] MEDS: DEXTROSE 50% WATER 50ML SYRINGE IV PRN ×2 (06:36→21:00)
[2021-03-20] MEDS: METOCLOPRAMIDE HCL 10MG/2ML VIAL IV SCH ×3 (06:40→17:50)
[2021-03-20] MEDS: SUCRALFATE 1 G/10 ML UDC PO SCH ×4 (06:40→21:00)
[2021-03-20 07:25] LABS: BASOPHILS % 0.7 % (0.0-2.0); EOSINOPHILS % 0.9 % (0.0-5.0); HEMATOCRIT. 21.1 % (36.0-48.0); HEMOGLOBIN. 7.2 g/dL (12.0-16.0); LYMPHOCYTES % 16.3 % (20.0-50.0); MEAN CORPUSCULAR HEMOGLOBIN 28.4 pg (28.0-32.0); MEAN CORPUSCULAR VOLUME 82.8 fL (81.0-99.0); MEAN PLATELET VOLUME 11.3 fl (7.4-10.4); MONOCYTES % 8.1 % (2.0-8.0); RED BLOOD CELL COUNT 2.55 mill/uL (4.2-5.4); RED CELL DISTRIBUTION WIDTH 19.1 % (11.6-14.6)
[2021-03-20] MEDS: MEGESTROL ACETATE 400 MG/10 ML UDC PO SCH (09:00)
[2021-03-20] MEDS: FOLIC ACID/VITAMIN B COMP W-C TABLET PO SCH (09:00)
[2021-03-20] MEDS: LACTOBACILLUS GG CAPSULE PO SCH (09:00)
[2021-03-20] MEDS: POTASSIUM CHLORIDE 20MEQ TABLET SR PO SCH ×2 (09:44→17:50)
[2021-03-20] MEDS: MIDODRINE HCL 5MG TABLET PO SCH ×3 (09:45→17:50)
[2021-03-20] MEDS ORDERED: SUCR1ORA15 PO ×3 (10:10→10:15)
[2021-03-20] MEDS ORDERED: POTA20TA82 PO (10:10)
[2021-03-20] MEDS ORDERED: LACT1CAP77 PO (10:10)
[2021-03-20] MEDS ORDERED: MIDO5TAB4 PO (10:10)
[2021-03-20] MEDS ORDERED: VANC125C5 MT ×3 (10:15)
[2021-03-20] MEDS ORDERED: OMEP40CA20 MT (10:15)
[2021-03-20] MEDS: DEXTROSE 5% WATER 1,000 ML IV SCH (17:45)
[2021-03-20 21:12] LABS: HEMATOCRIT 25.8 % (36.0-48.0); HEMOGLOBIN 8.6 g/dL (12.0-16.0)
[2021-03-20 21:19] LABS: INR 1.2; PROTHROMBIN TIME 12.7 sec (9.6-11.0)
[2021-03-21 13:02] LABS: PLATELET 50 x1000/uL (130-400)
== END 2021-03-20 22:00 | disposition home or self-care (01) | DRG 871 ==
LOC: ER 16:00 → MICUSO 23:56 → CVICU 03-04 16:35 → 6WST 03-06 16:52
PROVIDERS: ADMIT Internal Medicine; ATTEND Internal Medicine
PROC: 06HY33Z Insertion of Infusion Device into Lower Vein, Percutaneous Approach (ICD-10-PCS; principal; 2021-03-02)
PROC: B54BZZA Ultrasonography of Right Lower Extremity Veins, Guidance (ICD-10-PCS; 2021-03-02)
PROC: 5A1D70Z Performance of Urinary Filtration, Intermittent, Less than 6 Hours Per Day (ICD-10-PCS; 2021-03-04)
PROC: 5A1D70Z Performance of Urinary Filtration, Intermittent, Less than 6 Hours Per Day (ICD-10-PCS; 2021-03-06)
PROC: 5A1D70Z Performance of Urinary Filtration, Intermittent, Less than 6 Hours Per Day (ICD-10-PCS; 2021-03-07)
PROC: 0W9G3ZZ Drainage of Peritoneal Cavity, Percutaneous Approach (ICD-10-PCS; 2021-03-08)
PROC: 5A1D70Z Performance of Urinary Filtration, Intermittent, Less than 6 Hours Per Day (ICD-10-PCS; 2021-03-10)
PROC: 0DB78ZX Excision of Stomach, Pylorus, Via Natural or Artificial Opening Endoscopic, Diagnostic (ICD-10-PCS; 2021-03-11)
PROC: 5A1D70Z Performance of Urinary Filtration, Intermittent, Less than 6 Hours Per Day (ICD-10-PCS; 2021-03-12)
PROC: 5A1D70Z Performance of Urinary Filtration, Intermittent, Less than 6 Hours Per Day (ICD-10-PCS; 2021-03-14)
PROC: 5A1D70Z Performance of Urinary Filtration, Intermittent, Less than 6 Hours Per Day (ICD-10-PCS; 2021-03-16)
PROC: 5A1D70Z Performance of Urinary Filtration, Intermittent, Less than 6 Hours Per Day (ICD-10-PCS; 2021-03-19)
PROC: 30233N1 Transfusion of Nonautologous Red Blood Cells into Peripheral Vein, Percutaneous Approach (ICD-10-PCS; 2021-03-20)
DX: A41.9 Sepsis, unspecified organism (principal); J96.00 Acute respiratory failure, unspecified whether with hypoxia or hypercapnia; N18.6 End stage renal disease; E43 Unspecified severe protein-calorie malnutrition; I50.21 Acute systolic (congestive) heart failure; K29.71 Gastritis, unspecified, with bleeding; E87.1 Hypo-osmolality and hyponatremia; R18.8 Other ascites; R57.9 Shock, unspecified; K22.10 Ulcer of esophagus without bleeding; D68.9 Coagulation defect, unspecified; N13.30 Unspecified hydronephrosis; I13.2 Hypertensive heart and chronic kidney disease with heart failure and with stage 5 chronic kidney disease, or end stage renal disease; J91.8 Pleural effusion in other conditions classified elsewhere; D64.9 Anemia, unspecified; E16.2 Hypoglycemia, unspecified; E87.6 Hypokalemia; I25.10 Atherosclerotic heart disease of native coronary artery without angina pectoris; K74.60 Unspecified cirrhosis of liver; K52.9 Noninfective gastroenteritis and colitis, unspecified; E83.51 Hypocalcemia; Z20.822 Contact with and (suspected) exposure to COVID-19; E83.42 Hypomagnesemia; K44.9 Diaphragmatic hernia without obstruction or gangrene; I44.0 Atrioventricular block, first degree; K80.20 Calculus of gallbladder without cholecystitis without obstruction; M43.16 Spondylolisthesis, lumbar region; E11.22 Type 2 diabetes mellitus with diabetic chronic kidney disease; Z99.2 Dependence on renal dialysis; Z79.82 Long term (current) use of aspirin; Z68.27 Body mass index [BMI] 27.0-27.9, adult; Z87.19 Personal history of other diseases of the digestive system; Z90.49 Acquired absence of other specified parts of digestive tract; Z86.19 Personal history of other infectious and parasitic diseases; D69.6 Thrombocytopenia, unspecified
CPT/HCPCS: 36415; 36600; 49083; 71045; 74176; 76700; 78227; 80048; 80053; 80076; 81003; 82040; 82140; 82270; 82375; 82607; 82728; 82746; 82805; 82962; 83540; 83550; 83605; 83735; 83880; 84100; 84132; 84134; 84145; 85014; 85018; 85025; 85044; 85049; 85384; 86705; 86709; 86803; 86850; 86900; 86920; 87015; 87045; 87177; 87209; 87340; 87426; 87427; 87449; 88305; 88312; 88313; 89055; 92610; 93005; 93971; 97162; 97166; 99291; A6261; A9537; C1893; C9113; J0692; J0696; J1644; J2370; J2704; J2765; J3370; J3480; J3490; J7030; J7040; J7042; J7060; J7070; P9016

== ENCOUNTER 2021-04-15 12:55 | Inpatient (IN) | payer OTHER, MEDICAID ==
[~2021-04-15] VITALS: Ht 162.6 cm; Wt 49.9 kg
[~2021-04-15 12:55] MED LIST: LACT1CAP77 PO; MIDO5TAB4 PO; OMEP40CA20 MT; POTA20TA82 PO; SUCR1ORA15 PO; VANC125C5 MT
[2021-04-15] MEDS ORDERED: CEFTRIAXONE 1 G PREMIX 50 ML IV ONE (13:30)
[2021-04-15 13:58] LABS: HEMATOCRIT. 25.5 % (36.0-48.0); HEMOGLOBIN. 8.2 g/dL (12.0-16.0); MEAN CORPUSCULAR HEMOGLOBIN 28.3 pg (28.0-32.0); MEAN CORPUSCULAR VOLUME 88.4 fL (81.0-99.0); MEAN PLATELET VOLUME 8.3 fl (7.4-10.4); PLATELET 227 x1000/uL (130-400); RED BLOOD CELL COUNT 2.89 mill/uL (4.2-5.4); RED CELL DISTRIBUTION WIDTH 20.1 % (11.6-14.6)
[2021-04-15] MEDS ORDERED: CEFEPIME 2,000 MG in DEXT 5% WATER 100 ML IV SCH (14:00)
[2021-04-15 14:03] LABS: CHLORIDE 105 mEq/L (98-107)
[2021-04-15 14:47] LABS: PLATELET ESTIMATE NORMAL
[2021-04-15] MEDS ORDERED: ASPIRIN 325MG EC TABLET PO ONE (15:45)
[2021-04-15] MEDS ORDERED: SODIUM CHLORIDE 0.9% 1,000 ML IV ONE (16:00)
[2021-04-15] MEDS ORDERED: IPRATROPIUM/ALBUTEROL 0.5-3(2.5)MG/3ML NEB NEB PRN (17:15)
[2021-04-15] MEDS ORDERED: PIPERACILLIN/TAZOBACTAM 3.375 G in DEXTROSE 5% WATER 50 ML IV SCH (17:15)
[2021-04-15] MEDS ORDERED: CLONIDINE 0.1MG TABLET PO PRN (17:15)
[2021-04-15] MEDS ORDERED: ONDANSETRON HCL 4MG/2ML INJ IV PRN (17:15)
[2021-04-15] MEDS ORDERED: MIDODRINE HCL 5MG TABLET PO ONE (17:15)
[2021-04-15] MEDS ORDERED: MAGNESIUM/ALUMINUM HYDROXIDE/SIMETHICONE 30ML UDC PO PRN (17:15)
[2021-04-15] MEDS ORDERED: NA PHOS,M-B/NA PHOS,DI-BA ENEMA 118ML PR PRN (17:15)
[2021-04-15] MEDS ORDERED: ACETAMINOPHEN 650MG SUPP PR PRN (17:15)
[2021-04-15] MEDS ORDERED: GUAIFENESIN 200MG/10ML SUGAR FREE UDC PO PRN (17:15)
[2021-04-15] MEDS ORDERED: ACETAMINOPHEN 325MG TABLET PO PRN (17:15)
[2021-04-15] MEDS ORDERED: HYDROCODONE/ACETAMINOPHEN 5/325MG TABLET PO PRN (17:15)
[2021-04-15] MEDS ORDERED: DOCUSATE SODIUM 100MG CAPSULE PO PRN (17:15)
[2021-04-15] MEDS ORDERED: DIPHENHYDRAMINE 50MG/ML VIAL IV PRN (17:15)
[2021-04-15] MEDS ORDERED: LORAZEPAM 0.5MG TABLET PO PRN (17:15)
[2021-04-15] MEDS ORDERED: PIPERACILLIN/TAZ 3.375G PREMIX 50 ML IV NR (17:45)
[2021-04-15] MEDS ORDERED: VANCOMYCIN 1 G PREMIX 200 ML IV NR (17:54)
[2021-04-15 18:17] LABS: BG BASE EXCESS 2.2 mmol/L (-2.0-2.0); BG CARBOXYHEMOGLOBIN 0.3 % (0.5-1.5); BG DEOXYHEMOGLOBIN 3.8 % (0.0-5.0); BG FRACTION INSPIRED OXYGEN 21; BG HCO3 ACT 25.4 mmol/L (22.0-26.0); BG METHEMOGLOBIN 0.3 % (0.0-1.5); BG OXYGEN SATURATION 96.2 % (92.0-98.5); BG OXYHEMOGLOBIN 95.6 % (94.0-97.0); BG PCO2 34.1 mmHg (35.0-45.0); BG PO2 84.4 mmHg (75.0-100.0); BG SAMPLE SITE LEFT RADIAL; BG TOTAL HEMOGLOBIN 10.2 g/dL (12.0-18.0); BG VENT MODE ROOM AIR
[2021-04-15 20:53] LABS: HEMATOCRIT 26.4 % (36.0-48.0); HEMOGLOBIN 8.4 g/dL (12.0-16.0)
[2021-04-15 21:01] LABS: INR 1.3; PROTHROMBIN TIME 13.4 sec (9.6-11.0)
[2021-04-15] MEDS: FAMOTIDINE 20MG TABLET PO SCH (23:52)
[2021-04-16 09:03] LABS: HEMATOCRIT. 25.6 % (36.0-48.0); HEMOGLOBIN. 8.6 g/dL (12.0-16.0); MEAN CORPUSCULAR HEMOGLOBIN 29.4 pg (28.0-32.0); MEAN CORPUSCULAR VOLUME 88.2 fL (81.0-99.0); RED BLOOD CELL COUNT 2.91 mill/uL (4.2-5.4); RED CELL DISTRIBUTION WIDTH 19.5 % (11.6-14.6)
[2021-04-16 09:06] LABS: CHLORIDE 107 mEq/L (98-107)
[2021-04-16 09:15] LABS: CREATINE KINASE 27 IU/L (26-192)
[2021-04-16 09:17] LABS: CREATINE KINASE MB FRACTION 1.6 ng/mL (0.5-3.6)
[2021-04-16] MEDS: ASPIRIN 81MG EC TABLET PO SCH (10:16)
[2021-04-16] MEDS: PIPERACILLIN/TAZOBACTAM 3.375 G in DEXTROSE 5% WATER 50 ML IV SCH ×2 (10:16→22:23)
[2021-04-16 10:21] LABS: PLATELET 226 x1000/uL (130-400)
[2021-04-16] MEDS: MIDODRINE HCL 5MG TABLET PO SCH ×3 (10:35→22:25)
[2021-04-16 10:38] LABS: PLATELET ESTIMATE NORMAL
[2021-04-16] MEDS ORDERED: NALOXONE HCL 0.4MG/ML VIAL IV PRN (11:45)
[2021-04-16 13:47] LABS: HEPATITIS B SURFACE ANTIGEN NEGATIVE
[2021-04-16] MEDS: DEXAMETHASONE 10 MG/ML VIAL IV SCH (15:25)
[2021-04-16] MEDS: ENOXAPARIN 60MG/0.6ML SYR SUBCUT SCH (15:27)
[2021-04-16] MEDS: ALBUTEROL 6.7GM HFA INHALER ORI SCH ×2 (17:24→20:55)
[2021-04-16] MEDS: VANCOMYCIN HCL 1000 MG/20 ML ORAL PO SCH ×2 (17:59→22:24)
[2021-04-16] MEDS ORDERED: VANCOMYCIN HCL 1 GM/VIAL PO SCH (18:00)
[2021-04-16] MEDS ORDERED: VANCOMYCIN 500 MG PREMIX 100 ML IV SCH ×2 (19:00→20:00)
[2021-04-16] MEDS ORDERED: SODIUM CHLORIDE 0.9% 500 ML IV ONE (19:00)
[2021-04-16] MEDS ORDERED: SOTALOL HCL 80MG TABLET PO SCH (21:00)
[2021-04-16] MEDS: DILTIAZEM HCL 30MG TABLET PO SCH ×2 (22:00→22:25)
[2021-04-16] MEDS: ATORVASTATIN CALCIUM 40MG TABLET PO SCH (22:24)
[2021-04-16] MEDS: FAMOTIDINE 20MG TABLET PO SCH (22:25)
[2021-04-17] MEDS: MIDODRINE HCL 5MG TABLET PO SCH ×3 (06:00→18:19)
[2021-04-17] MEDS: DILTIAZEM HCL 30MG TABLET PO SCH ×2 (06:00→14:00)
[2021-04-17] MEDS ORDERED: NOREPINEPHRINE 8MG/250ML PMX 250 ML IV PRN (06:30)
[2021-04-17] MEDS: VANCOMYCIN HCL 1000 MG/20 ML ORAL PO SCH ×3 (09:00→17:07)
[2021-04-17] MEDS: ASPIRIN 81MG EC TABLET PO SCH (10:02)
[2021-04-17] MEDS: DEXAMETHASONE 10 MG/ML VIAL IV SCH (10:02)
[2021-04-17] MEDS: PIPERACILLIN/TAZOBACTAM 3.375 G in DEXTROSE 5% WATER 50 ML IV SCH ×2 (10:18→21:41)
[2021-04-17] MEDS: ALBUTEROL 6.7GM HFA INHALER ORI SCH ×2 (12:00→12:15)
[2021-04-17] MEDS ORDERED: PHENYLEPHRINE 50 MG in DEXT 5% WATER 245 ML IV PRN (12:15)
[2021-04-17 12:17] LABS: HEMATOCRIT. 28.8 % (36.0-48.0); HEMOGLOBIN. 9.1 g/dL (12.0-16.0); MEAN CORPUSCULAR HEMOGLOBIN 27.9 pg (28.0-32.0); MEAN CORPUSCULAR VOLUME 88.7 fL (81.0-99.0); MEAN PLATELET VOLUME 9.3 fl (7.4-10.4); PLATELET 274 x1000/uL (130-400); RED BLOOD CELL COUNT 3.25 mill/uL (4.2-5.4); RED CELL DISTRIBUTION WIDTH 19.4 % (11.6-14.6)
[2021-04-17] MEDS: RIFAXIMIN 550 MG TABLET PO SCH (12:19)
[2021-04-17 15:20] LABS: NUCLEATED RED BLOOD CELLS 1 /100 WBC; PLATELET ESTIMATE NORMAL
[2021-04-18] MEDS: ATORVASTATIN CALCIUM 40MG TABLET PO SCH ×2 (01:08→22:13)
[2021-04-18] MEDS: MIDODRINE HCL 5MG TABLET PO SCH ×4 (01:08→18:23)
[2021-04-18] MEDS: DILTIAZEM HCL 30MG TABLET PO SCH ×4 (01:08→22:14)
[2021-04-18] MEDS: FAMOTIDINE 20MG TABLET PO SCH ×2 (01:08→22:14)
[2021-04-18] MEDS: RIFAXIMIN 550 MG TABLET PO SCH ×3 (01:08→22:14)
[2021-04-18] MEDS: VANCOMYCIN HCL 1000 MG/20 ML ORAL PO SCH ×5 (01:10→21:00)
[2021-04-18 07:57] LABS: HEMATOCRIT. 29.5 % (36.0-48.0); HEMOGLOBIN. 9.5 g/dL (12.0-16.0); MEAN CORPUSCULAR HEMOGLOBIN 28.1 pg (28.0-32.0); MEAN PLATELET VOLUME 9.2 fl (7.4-10.4); PLATELET 228 x1000/uL (130-400); RED BLOOD CELL COUNT 3.39 mill/uL (4.2-5.4); RED CELL DISTRIBUTION WIDTH 18.9 % (11.6-14.6)
[2021-04-18 09:05] LABS: PLATELET ESTIMATE NORMAL
[2021-04-18] MEDS: ALBUTEROL 6.7GM HFA INHALER ORI SCH ×3 (09:35→20:50)
[2021-04-18] MEDS: NOREPINEPHRINE 8 MG in DEXT 5% WATER 242 ML IV PRN (10:47)
[2021-04-18] MEDS: PIPERACILLIN/TAZOBACTAM 3.375 G in DEXTROSE 5% WATER 50 ML IV SCH (10:48)
[2021-04-18] MEDS ORDERED: VANCOMYCIN 500 MG PREMIX 100 ML IV NR (11:00)
[2021-04-18] MEDS ORDERED: LIDOCAINE HCL 1% 20ML VIAL (Pyxis) INJ ONE (11:47)
[2021-04-18] MEDS ORDERED: SODIUM BICARBONATE 4% (2.4MEQ) 5ML VIAL IV ONE (11:47)
[2021-04-18 15:10] LABS: BG BASE EXCESS -3.2 mmol/L (-2.0-2.0); BG CARBOXYHEMOGLOBIN 0.3 % (0.5-1.5); BG FRACTION INSPIRED OXYGEN 28; BG HCO3 ACT 20.7 mmol/L (22.0-26.0); BG METHEMOGLOBIN 0.3 % (0.0-1.5); BG OXYHEMOGLOBIN 98.4 % (94.0-97.0); BG PH 7.416 (7.350-7.450); BG PO2 177.1 mmHg (75.0-100.0); BG SAMPLE SITE LEFT RADIAL; BG TOTAL HEMOGLOBIN 10.5 g/dL (12.0-18.0); BG VENT MODE NASAL CANNULA
[2021-04-19] VITALS (91 sets, daily range): BP systolic 32–182; BP diastolic 15–114
[2021-04-19] MEDS: ALBUTEROL 6.7GM HFA INHALER ORI SCH (03:09)
[2021-04-19] MEDS: DILTIAZEM HCL 30MG TABLET PO SCH ×3 (06:00→21:20)
[2021-04-19] MEDS: PHENYLEPHRINE 100 MG in DEXT 5% WATER 240 ML IV PRN ×2 (06:23→17:35)
[2021-04-19] MEDS ORDERED: PIPERACILLIN/TAZOBACTAM 3.375 G in DEXTROSE 5% WATER 50 ML IV SCH (09:00)
[2021-04-19] MEDS: RIFAXIMIN 550 MG TABLET PO SCH ×2 (09:21→21:00)
[2021-04-19] MEDS: VANCOMYCIN HCL 1000 MG/20 ML ORAL PO SCH ×4 (09:22→21:00)
[2021-04-19] MEDS: MIDODRINE HCL 5MG TABLET PO SCH ×2 (12:11→17:27)
[2021-04-19] MEDS: NOREPINEPHRINE 8 MG in DEXT 5% WATER 242 ML IV PRN ×3 (13:27→23:07)
[2021-04-19] MEDS: ENOXAPARIN 60MG/0.6ML SYR SUBCUT SCH (14:14)
[2021-04-19] MEDS: DEXTROSE 50% WATER 50ML SYRINGE IV NR ×2 (14:49→15:43)
[2021-04-19] MEDS: DEXT 5%/0.45% NACL 1000ML 1,000 ML IV SCH (14:54)
[2021-04-19] MEDS: BLOOD SUGAR DIAGNOSTIC STRIP TEST SCH ×6 (15:15→20:15)
[2021-04-19] MEDS ORDERED: DEXTROSE 10% WATER 500 ML IV ONE (16:00)
[2021-04-19] MEDS ORDERED: DEXTROSE 50% WATER 50ML SYRINGE IV NR ×2 (16:00→18:00)
[2021-04-19 16:20] LABS: CHLORIDE 107 mEq/L (98-107)
[2021-04-19 16:22] LABS: BG BASE EXCESS -4.8 mmol/L (-2.0-2.0); BG DEOXYHEMOGLOBIN 1.5 % (0.0-5.0); BG FRACTION INSPIRED OXYGEN 28; BG HCO3 ACT 19.7 mmol/L (22.0-26.0); BG METHEMOGLOBIN 0.6 % (0.0-1.5); BG OXYGEN SATURATION 98.5 % (92.0-98.5); BG OXYHEMOGLOBIN 97.9 % (94.0-97.0); BG PCO2 33.7 mmHg (35.0-45.0); BG PH 7.385 (7.350-7.450); BG SAMPLE SITE LEFT BRACHIAL; BG TOTAL HEMOGLOBIN 7.9 g/dL (12.0-18.0); BG VENT MODE NASAL CANNULA
[2021-04-19] MEDS ORDERED: HYDROCORTISONE SOD SUCCINATE 100 MG/2 ML VIAL IV NR (17:30)
[2021-04-19] MEDS ORDERED: SODIUM BICARBONATE 8.4% 1 MEQ/ML 50ML SYR IV NR (17:30)
[2021-04-19] MEDS: VASOPRESSIN 20 UNIT in SODIUM CHLORIDE 0.9% 99 ML IV PRN (17:36)
[2021-04-19] MEDS ORDERED: DEXTROSE 50% WATER 50ML SYRINGE IV ONE (17:43)
[2021-04-19 18:15] LABS: BG BASE EXCESS -3.7 mmol/L (-2.0-2.0); BG CARBOXYHEMOGLOBIN 0.3 % (0.5-1.5); BG DEOXYHEMOGLOBIN 1.8 % (0.0-5.0); BG FRACTION INSPIRED OXYGEN 28; BG HCO3 ACT 20.8 mmol/L (22.0-26.0); BG METHEMOGLOBIN 0.5 % (0.0-1.5); BG OXYGEN SATURATION 98.2 % (92.0-98.5); BG OXYHEMOGLOBIN 97.4 % (94.0-97.0); BG PCO2 35.1 mmHg (35.0-45.0); BG PO2 127.9 mmHg (75.0-100.0); BG SAMPLE SITE LEFT BRACHIAL; BG TOTAL HEMOGLOBIN 9.4 g/dL (12.0-18.0); BG VENT MODE NASAL CANNULA
[2021-04-19] MEDS: DEXT 10% WATER 1,000 ML IV SCH ×2 (18:21→23:07)
[2021-04-19] MEDS: FAMOTIDINE 20MG TABLET PO SCH (21:00)
[2021-04-19] MEDS: ATORVASTATIN CALCIUM 40MG TABLET PO SCH (21:00)
[2021-04-20] VITALS (61 sets, daily range): BP systolic 48–198; BP diastolic 27–120
[2021-04-20] MEDS: HYDROCORTISONE SOD SUCCINATE 100 MG/2 ML VIAL IV SCH ×5 (00:12→22:00)
[2021-04-20] MEDS: DOPAMINE 800MG PREMIX (DOUBLE) 250 ML IV PRN ×2 (00:13→19:49)
[2021-04-20] MEDS: PHENYLEPHRINE 100 MG in DEXT 5% WATER 240 ML IV PRN ×3 (01:03→23:52)
[2021-04-20] MEDS: VASOPRESSIN 20 UNIT in SODIUM CHLORIDE 0.9% 99 ML IV PRN ×2 (02:59→11:21)
[2021-04-20] MEDS: NOREPINEPHRINE 8 MG in DEXT 5% WATER 242 ML IV PRN (03:00)
[2021-04-20] MEDS: DILTIAZEM HCL 30MG TABLET PO SCH ×2 (06:00→14:00)
[2021-04-20] MEDS: MIDODRINE HCL 5MG TABLET PO SCH ×4 (06:00→18:00)
[2021-04-20] MEDS: BLOOD SUGAR DIAGNOSTIC STRIP TEST SCH ×9 (06:23→18:15)
[2021-04-20] MEDS: DEXT 5%/0.45% NACL 1000ML 1,000 ML IV SCH (07:25)
[2021-04-20] MEDS ORDERED: ENOXAPARIN 60MG/0.6ML SYR SUBCUT SCH (09:00)
[2021-04-20] MEDS: DEXT 10% WATER 1,000 ML IV SCH (09:30)
[2021-04-20] MEDS: VANCOMYCIN HCL 1000 MG/20 ML ORAL PO SCH ×4 (10:30→22:00)
[2021-04-20] MEDS: RIFAXIMIN 550 MG TABLET PO SCH ×2 (10:31→22:00)
[2021-04-20 10:38] LABS: HEMATOCRIT. 25.5 % (36.0-48.0); HEMOGLOBIN. 7.9 g/dL (12.0-16.0); MEAN CORPUSCULAR HEMOGLOBIN 27.8 pg (28.0-32.0); MEAN CORPUSCULAR VOLUME 89.5 fL (81.0-99.0); MEAN PLATELET VOLUME 10.5 fl (7.4-10.4); RED BLOOD CELL COUNT 2.85 mill/uL (4.2-5.4); RED CELL DISTRIBUTION WIDTH 18.9 % (11.6-14.6)
[2021-04-20 11:02] LABS: PLATELET 41 x1000/uL (130-400)
[2021-04-20 11:46] LABS: BG BASE EXCESS -16.2 mmol/L (-2.0-2.0); BG CARBOXYHEMOGLOBIN 0.3 % (0.5-1.5); BG DEOXYHEMOGLOBIN 6.5 % (0.0-5.0); BG HCO3 ACT 9.2 mmol/L (22.0-26.0); BG OXYGEN SATURATION 93.5 % (92.0-98.5); BG OXYHEMOGLOBIN 93.2 % (94.0-97.0); BG PCO2 20.9 mmHg (35.0-45.0); BG PO2 81.4 mmHg (75.0-100.0); BG SAMPLE SITE LEFT RADIAL; BG TOTAL HEMOGLOBIN 9.1 g/dL (12.0-18.0); BG VENT MODE ROOM AIR
[2021-04-20 12:04] LABS: NUCLEATED RED BLOOD CELLS 3 /100 WBC; PLATELET ESTIMATE MARKEDLY DECREASED
[2021-04-20] MEDS ORDERED: SODIUM BICARBONATE 8.4% 1 MEQ/ML 50ML SYR IV NR ×2 (14:30→23:00)
[2021-04-20] MEDS ORDERED: INSULIN REGULAR (DRIP) 100 UNITS in SODIUM CHLORIDE 0.9% 99 ML IV PRN (14:30)
[2021-04-20] MEDS ORDERED: DEXTROSE 50% WATER 50ML SYRINGE IV PRN ×2 (15:00)
[2021-04-20] MEDS ORDERED: INSULIN REGULAR (DRIP) 100 UNITS in SODIUM CHLORIDE 0.9% 100 ML IV SCH (16:00)
[2021-04-20 18:10] LABS: BG BASE EXCESS -12.3 mmol/L (-2.0-2.0); BG CARBOXYHEMOGLOBIN 0.1 % (0.5-1.5); BG DEOXYHEMOGLOBIN 3.3 % (0.0-5.0); BG HCO3 ACT 11.6 mmol/L (22.0-26.0); BG METHEMOGLOBIN 0.6 % (0.0-1.5); BG OXYGEN SATURATION 96.7 % (92.0-98.5); BG PCO2 20.3 mmHg (35.0-45.0); BG PH 7.374 (7.350-7.450); BG PO2 95.6 mmHg (75.0-100.0); BG SAMPLE SITE LEFT RADIAL; BG TOTAL HEMOGLOBIN 7.1 g/dL (12.0-18.0); BG VENT MODE ROOM AIR
[2021-04-20 21:24] LABS: MEAN CORPUSCULAR HEMOGLOBIN 27.3 pg (28.0-32.0); MEAN CORPUSCULAR VOLUME 88.9 fL (81.0-99.0); MEAN PLATELET VOLUME 10.4 fl (7.4-10.4); RED BLOOD CELL COUNT 2.26 mill/uL (4.2-5.4); RED CELL DISTRIBUTION WIDTH 18.7 % (11.6-14.6)
[2021-04-20 21:37] LABS: HEMOGLOBIN. 6.2 g/dL (12.0-16.0)
[2021-04-20 21:45] LABS: PLATELET 32 x1000/uL (130-400)
[2021-04-20] MEDS: FAMOTIDINE 20MG TABLET PO SCH (22:00)
[2021-04-20] MEDS: ATORVASTATIN CALCIUM 40MG TABLET PO SCH (22:00)
[2021-04-20 23:28] LABS: NUCLEATED RED BLOOD CELLS 7 /100 WBC
[2021-04-20 23:30] LABS: PLATELET ESTIMATE MARKEDLY DECREASED
[2021-04-20 23:44] LABS: BG BASE EXCESS -13.8 mmol/L (-2.0-2.0); BG CARBOXYHEMOGLOBIN 0.3 % (0.5-1.5); BG DEOXYHEMOGLOBIN 3.7 % (0.0-5.0); BG FRACTION INSPIRED OXYGEN 21; BG HCO3 ACT 10.8 mmol/L (22.0-26.0); BG METHEMOGLOBIN 0.6 % (0.0-1.5); BG OXYGEN SATURATION 96.3 % (92.0-98.5); BG OXYHEMOGLOBIN 95.4 % (94.0-97.0); BG PH 7.329 (7.350-7.450); BG PO2 94.6 mmHg (75.0-100.0); BG SAMPLE SITE LEFT BRACHIAL; BG TOTAL HEMOGLOBIN 6.6 g/dL (12.0-18.0); BG VENT MODE ROOM AIR
[2021-04-20] MEDS: SODIUM BICARBONATE 100 MEQ in SODIUM CHLORIDE 0.45% 1,000 ML IV SCH (23:48)
[2021-04-21] VITALS (74 sets, daily range): BP systolic 64–195; BP diastolic 34–136
[2021-04-21] MEDS: VASOPRESSIN 20 UNIT in SODIUM CHLORIDE 0.9% 99 ML IV PRN ×2 (05:38→18:23)
[2021-04-21] MEDS: HYDROCORTISONE SOD SUCCINATE 100 MG/2 ML VIAL IV SCH ×2 (05:44→13:26)
[2021-04-21 06:07] LABS: MEAN CORPUSCULAR HEMOGLOBIN 27.6 pg (28.0-32.0); MEAN CORPUSCULAR VOLUME 90.6 fL (81.0-99.0); MEAN PLATELET VOLUME 9.5 fl (7.4-10.4)
[2021-04-21 06:30] LABS: HEMATOCRIT. 18.1 % (36.0-48.0); HEMOGLOBIN. 5.5 g/dL (12.0-16.0)
[2021-04-21 06:32] LABS: PLATELET 26 x1000/uL (130-400)
[2021-04-21] MEDS ORDERED: EPINEPHRINE 0.1MG/ML (1:10,000) 10ML SYR ONE (07:46)
[2021-04-21] MEDS ORDERED: DEXTROSE 50% WATER 50ML SYRINGE IV ONE (07:46)
[2021-04-21 08:16] LABS: BG BASE EXCESS -19.9 mmol/L (-2.0-2.0); BG CARBOXYHEMOGLOBIN 0.4 % (0.5-1.5); BG DEOXYHEMOGLOBIN 3.5 % (0.0-5.0); BG HCO3 ACT 6.5 mmol/L (22.0-26.0); BG METHEMOGLOBIN 0.7 % (0.0-1.5); BG OXYGEN SATURATION 96.5 % (92.0-98.5); BG OXYHEMOGLOBIN 95.4 % (94.0-97.0); BG PCO2 17.4 mmHg (35.0-45.0); BG PH 7.189 (7.350-7.450); BG PO2 103.2 mmHg (75.0-100.0); BG SAMPLE SITE LEFT RADIAL; BG VENT MODE ROOM AIR
[2021-04-21] MEDS ORDERED: SODIUM BICARBONATE 8.4% 1 MEQ/ML 50ML SYR IV NR ×2 (08:45→13:15)
[2021-04-21] MEDS ORDERED: FAMOTIDINE 20MG/2ML VIAL IV SCH (09:00)
[2021-04-21] MEDS: NOREPINEPHRINE 8 MG in DEXT 5% WATER 242 ML IV PRN ×2 (09:01→20:33)
[2021-04-21] MEDS: PHENYLEPHRINE 100 MG in DEXT 5% WATER 240 ML IV PRN ×2 (09:03→17:53)
[2021-04-21] MEDS: MIDODRINE HCL 5MG TABLET PO SCH ×2 (11:53→17:52)
[2021-04-21 12:42] LABS: BG BASE EXCESS -17.7 mmol/L (-2.0-2.0); BG HCO3 ACT 6.5 mmol/L (22.0-26.0); BG METHEMOGLOBIN 0.4 % (0.0-1.5); BG OXYHEMOGLOBIN 96.6 % (94.0-97.0); BG PCO2 14.2 mmHg (35.0-45.0); BG PH 7.281 (7.350-7.450); BG PO2 95.7 mmHg (75.0-100.0); BG SAMPLE SITE LEFT RADIAL; BG TOTAL HEMOGLOBIN 11.6 g/dL (12.0-18.0); BG VENT MODE ROOM AIR
[2021-04-21] MEDS: SODIUM BICARBONATE 100 MEQ in SODIUM CHLORIDE 0.45% 1,000 ML IV SCH (13:26)
[2021-04-21] MEDS: SODIUM BICARBONATE 8.4% 1 MEQ/ML 50ML SYR IV SCH ×3 (13:26→20:11)
[2021-04-21] MEDS: DILTIAZEM HCL 30MG TABLET PO SCH (14:00)
[2021-04-21] MEDS: RIFAXIMIN 550 MG TABLET PO SCH (15:10)
[2021-04-21] MEDS: VANCOMYCIN HCL 1000 MG/20 ML ORAL PO SCH ×2 (15:19→17:02)
[2021-04-21] MEDS ORDERED: MEROPENEM 500 MG in SODIUM CHLORIDE 0.9% 50 ML IV SCH (16:00)
[2021-04-21 16:11] LABS: HEMOGLOBIN 9.6 g/dL (12.0-16.0)
[2021-04-21] MEDS ORDERED: VANCOMYCIN HCL 1 GM/VIAL PO SCH (18:00)
[2021-04-21 18:22] LABS: BG BASE EXCESS -12.9 mmol/L (-2.0-2.0); BG CARBOXYHEMOGLOBIN 0.3 % (0.5-1.5); BG HCO3 ACT 9.4 mmol/L (22.0-26.0); BG METHEMOGLOBIN 0.3 % (0.0-1.5); BG OXYHEMOGLOBIN 95.4 % (94.0-97.0); BG PCO2 15.7 mmHg (35.0-45.0); BG PH 7.396 (7.350-7.450); BG SAMPLE SITE LEFT RADIAL; BG TOTAL HEMOGLOBIN 12.1 g/dL (12.0-18.0); BG VENT MODE ROOM AIR
[2021-04-22 06:45] LABS: NUCLEATED RED BLOOD CELLS 21 /100 WBC; PLATELET ESTIMATE MARKEDLY DECREASED
== END 2021-04-21 23:46 | DRG 871 ==
LOC: ER 12:55 → EDBEDREQTM 15:49 → EDBEDREQSVC 15:49 → EDBEDREQ 15:49 → MICUSO 23:53 → EDBEDREQTM 04-18 05:22 → EDBEDREQDT 04-18 05:22 → EDBEDREQSVC 04-18 05:22 → ENRESERV 04-19 02:24 → MICUSO 04-19 02:25
PROVIDERS: ADMIT Internal Medicine; ATTEND Internal Medicine
PROC: 5A2204Z Restoration of Cardiac Rhythm, Single (ICD-10-PCS; 2021-04-15)
PROC: 5A1D70Z Performance of Urinary Filtration, Intermittent, Less than 6 Hours Per Day (ICD-10-PCS; 2021-04-17)
PROC: 0W993ZZ Drainage of Right Pleural Cavity, Percutaneous Approach (ICD-10-PCS; 2021-04-18)
PROC: 0W9G30Z Drainage of Peritoneal Cavity with Drainage Device, Percutaneous Approach (ICD-10-PCS; 2021-04-18)
PROC: 02H633Z Insertion of Infusion Device into Right Atrium, Percutaneous Approach (ICD-10-PCS; 2021-04-19)
PROC: B548ZZA Ultrasonography of Superior Vena Cava, Guidance (ICD-10-PCS; 2021-04-19)
PROC: 5A1D70Z Performance of Urinary Filtration, Intermittent, Less than 6 Hours Per Day (ICD-10-PCS; 2021-04-19)
PROC: 5A12012 Performance of Cardiac Output, Single, Manual (ICD-10-PCS; principal; 2021-04-21)
PROC: 30233N1 Transfusion of Nonautologous Red Blood Cells into Peripheral Vein, Percutaneous Approach (ICD-10-PCS; 2021-04-21)
DX: A41.89 Other specified sepsis (principal); E11.10 Type 2 diabetes mellitus with ketoacidosis without coma; U07.1 COVID-19; I50.43 Acute on chronic combined systolic (congestive) and diastolic (congestive) heart failure; J69.0 Pneumonitis due to inhalation of food and vomit; J12.82 Pneumonia due to coronavirus disease 2019; G93.41 Metabolic encephalopathy; N18.6 End stage renal disease; R65.21 Severe sepsis with septic shock; D68.9 Coagulation defect, unspecified; N39.0 Urinary tract infection, site not specified; I13.2 Hypertensive heart and chronic kidney disease with heart failure and with stage 5 chronic kidney disease, or end stage renal disease; A04.72 Enterocolitis due to Clostridium difficile, not specified as recurrent; G82.20 Paraplegia, unspecified; R18.8 Other ascites; I31.3 Pericardial effusion (noninflammatory); K51.00 Ulcerative (chronic) pancolitis without complications; J91.8 Pleural effusion in other conditions classified elsewhere; I48.91 Unspecified atrial fibrillation; D64.9 Anemia, unspecified; R06.03 Acute respiratory distress; R77.8 Other specified abnormalities of plasma proteins; M47.816 Spondylosis without myelopathy or radiculopathy, lumbar region; M48.061 Spinal stenosis, lumbar region without neurogenic claudication; R09.02 Hypoxemia; K74.60 Unspecified cirrhosis of liver; K80.20 Calculus of gallbladder without cholecystitis without obstruction; I25.10 Atherosclerotic heart disease of native coronary artery without angina pectoris; M43.16 Spondylolisthesis, lumbar region; M51.26 Other intervertebral disc displacement, lumbar region; R79.89 Other specified abnormal findings of blood chemistry; E11.22 Type 2 diabetes mellitus with diabetic chronic kidney disease; E78.5 Hyperlipidemia, unspecified; I49.3 Ventricular premature depolarization; E11.649 Type 2 diabetes mellitus with hypoglycemia without coma; D69.6 Thrombocytopenia, unspecified; T68.XXXA Hypothermia, initial encounter; Z99.2 Dependence on renal dialysis; Z86.73 Personal history of transient ischemic attack (TIA), and cerebral infarction without residual deficits; Z95.5 Presence of coronary angioplasty implant and graft
CPT/HCPCS: 32555; 36415; 36600; 49083; 71045; 74176; 76700; 76937; 80048; 80053; 80202; 82040; 82140; 82270; 82375; 82550; 82553; 82805; 82962; 83605; 83615; 83735; 83880; 84145; 84443; 84478; 84484; 85014; 85018; 85025; 85044; 86140; 86705; 86709; 86803; 86850; 86900; 86920; 87015; 87045; 87340; 87426; 87427; 87449; 88108; 88312; 89055; 93005; 93306; 93970; 94640; 99291; C1725; J0692; J0696; J1100; J1200; J1265; J1650; J1720; J1815; J2185; J2370; J2405; J2543; J3370; J3490; J7030; J7050; J7060; P9016; P9034; U0003; U0005